=== PATIENT | male | born 1955 | race Caucasian/White ===

== ENCOUNTER → 2021-01-06 | Outpatient (CLI) | payer BC ==
[2021-01-06 11:38] LABS: African American GFR (CKD) >90 (>60 ml/min/1.73 sqM); Anion Gap 6 mmol/L; Blood Urea Nitrogen 24 mg/dL (9-20); Calcium 9.6 mg/dL (8.4-10.2); Carbon Dioxide 25 mmol/L (22-30); Chloride 109 mmol/L (98-107); Glucose 110 mg/dL (74-99); Non-African American GFR(CKD) >90 (>60 ml/min/1.73 sqM); Potassium 4.3 mmol/L (3.5-5.1); Sodium 140 mmol/L (137-145)
--- NOTE | 2021-01-06 13:22 | CT ---
EXAMINATION TYPE: CT abdomen pelvis w con DATE OF EXAM: 01/06/2021 COMPARISON: None HISTORY: Prostate cancer. CT DLP: 1492 mGycm Automated exposure control for dose reduction was used. CONTRAST: CT scan of the abdomen pelvis is performed with IV Contrast, patient injected with 100 mL of Isovue M 300. FINDINGS- The lungs are clear. Pancreas has a normal appearance. Adrenal glands have a normal morphology. Low-a ttenuation throughout the liver likely related to fatty infiltration. Areas of increased attenuation measuring approximately 1 cm likely related to focal fatty sparing. Small hemangioma not excluded. Hy pertrophic and degenerative change of the spine. Kidneys function symmetrically with no hydronephrosis or nephrolithiasis. Subcentimeter anterior mid cortical lesion of the right too small to characterize. Changes of diverticulosis seen with no diagno stic evidence of diverticulitis. Bilateral fat-containing inguinal hernias. No pathologic adenopathy. Prostate calcifications are seen and there is fat-containing left inguinal hernia. IMPRESSION- 1. No diagnostic evidence of metastases.
--- NOTE | 2021-01-06 15:21 | NM ---
EXAMINATION TYPE: NM bone scan whole body DATE OF EXAM: 01/06/2021 COMPARISON: CT scan 01/06/2021 HISTORY: Prostate cancer Delayed whole-body scanning was performed following the injection of 22.0 mCi Tc 99m MDP. Images acq uired 3 hours post injection. FINDINGS: Abnormal uptake seen throughout the thoracic and lumbar spine. Appears be related to hypert rophic and degenerative change by CT scan. This includes facet arthropathy. Abnormal uptake involving the shoulders and feet, and knees likely post arthritic. Localized area of abnormal uptake involving the right inferior pubic ramus appears to correspond to a small focal area of sclerosis is nonspecific. IMPRESSION: 1. Abnormal uptake throughout the vertebral, appears to correspond to hypertrophic and degenerative c hanges. 2. Small focal area of abnormal uptake involving the right inferior pubic ramus is nonspecific and co rresponds to a small area of sclerosis. Although this could be a bone island, a early metastases not excluded.
== END | disposition home or self-care (01) ==
LOC: RADNMMAIN 10:42
PROVIDERS: ATTEND Urology
DX: C61 Malignant neoplasm of prostate (principal)
CPT/HCPCS: 80048; 74177; 36415; 78306; A9503; Q9967 ×2